=== PATIENT | female | born 1950 | race Caucasian/White ===

== ENCOUNTER 2020-07-29 08:31 | Outpatient (CLI) | payer MEDICARE, SELFPAY ==
--- NOTE | ~2020-07-29 | DEXA_ITS ---
BMD(1) Young-Adult(2) Age-Matched(3) Region (g/cm2) T-score Z-score WHO Classification L1 1.084 -0.5 0.4 Normal L2 1.099 -0.9 -0.1 Normal L3 1.228 0.1 0.9 Normal L4 1.357 1.1 1.9 Normal L1-L4 1.213 0.2 1.0 Normal Trend: L1-L4 Change vs Change vs Measured Age BMD(1) Baseline Previous Date ([age]) (g/cm2) (%) (%) 07/29/2020 [age] 1[age]213 baseline - 1 - Statistically 68% of repeat scans fall within 1SD (+- 0.010 g/cm2 for AP Spine L1-L4) 2 - [place] (Combined [employer]ANES (ages 20-30) / [employer] (ages 20-40)) AP Spine Reference Population (v112) 3 - Matched for Age, Weight (females 25-100 kg), Ethnic 11 - World Health Organization - Definition of Osteoporosis and Osteopenia for Women: Normal = T-score at or above -1.0 SD; Osteopenia = T-score between -1.0 and -2.5 SD; Osteoporosis = T-score at or below -2.5 SD; (WHO definitions only apply when a young healthy Women reference database is used to determine T-scores.) Printed: 07/29/2020 9:37:10 AM (13.60)76:3.00:22.22:27.0 0.00:9.96 0.60x1.05 24.9:%Fat=41.6% 0.00:0.00 0.00:0.00 Filename: [id number] Scan Mode: Thick;OneScan 83.0 uGy [employer] [id number] BMD(1) Young-Adult(2,7) Age-Matched(3) Region (g/cm2) T-score Z-score WHO Classification Neck Left 0.889 -1.1 0.1 Osteopenia Right 0.906 -1.0 0.3 Normal Mean 0.898 -1.0 0.2 Normal Difference 0.016 0.1 0.1 - Total Left 1.049 0.3 1.3 Normal Right 1.026 0.1 1.1 Normal Mean 1.038 0.2 1.2 Normal Difference 0.023 0.2 0.2 - Hip [place] Length Comparison (mm) (Right = 110.5 mm) (Mean = 103.8 mm) (Left = 105.6 mm) Trend: Total Mean Change vs Change vs Measured Age BMD(1) Baseline Previous Date (years) (g/cm2) (%) (%) 07/29/2020 69.8 1[age]038 baseline - 1 - Statistically 68% of repeat scans fall within 1SD (+- 0.010 g/cm2 for Dual[employer]em[employer] Total) 2 - [place] (Combined [employer]ANES (ages 20-30) / [employer] (ages 20-40)) Femur Reference Population (v112) 3 - Matched for Age, Weight (females 25-100 kg), Ethnic 7 - [employer] Total T-score difference is 0.2. Asymmetry is None. 11 - World Health Organization - Definition of Osteoporosis and Osteopenia for Women: Normal = T-score at or above -1.0 SD; Osteopenia = T-score between -1.0 and -2.5 SD; Osteoporosis = T-score at or below -2.5 SD; (WHO definitions only apply when a young healthy Women reference database is used to determine T-scores.) Printed: 07/29/2020 9:37:11 AM (13.60); Filename: [id number]; Right Femur; 20.8:%Fat=34.3%; Neck Angle (deg)= 55; Scan Mode: Standard 37.0 uGy; Left Femur; 21.6:%Fat=36.5%; Neck Angle (deg)= 55; Scan Mode: Standard 37.0 uGy [employer] [id number] Dear Codey Kohler, Your patient Amy Bolanos completed a BMD test on 07/29/2020 using the [employer] DXA System (analysis version: 13.60) manufactured by [employer]. The following summarizes the results of our evaluation. PATIENT BIOGRAPHICAL: Name: Amy Bolanos Date: 1950 Height: 62.0 in. Gender: Female Exam Date: 07/29/2020 Weight: 200.0 lbs. Indications: , Height Loss Fractures: Tr
== END 2020-07-29 08:32 | disposition home or self-care (01) ==
LOC: CHSIMG 08:36
PROVIDERS: PCP Family Medicine; Visit Provider Family Medicine
DX: Z78.0 Asymptomatic menopausal state (principal)
CPT/HCPCS: 77080

== ENCOUNTER 2021-08-22 13:02 | Outpatient (CLI) | payer MEDICARE, SELFPAY ==
--- NOTE | 2021-08-22 13:15 | PC.NURSE ---
Presents for infusion for covid, consent signed,
[2021-08-22 13:25] VITALS: BP 127/68; PULSE 79; RESP 18; TEMP 36.3; O2SAT 93
[2021-08-22] MEDS: FAMOTIDINE 20 MG TABLET PO (13:30)
[2021-08-22] MEDS: diphenhydrAMINE HCl CAP 25 MG CAPSULE PO (13:30)
[2021-08-22] MEDS: ACETAMINOPHEN 325 MG TABLET 650 MG PO (13:30)
--- NOTE | 2021-08-22 13:32 | PC.NURSE ---
pre meds given
[2021-08-22 14:35] VITALS: BP 129/68; PULSE 70; RESP 18; TEMP 36.4; O2SAT 95
--- NOTE | 2021-08-22 14:36 | PC.NURSE ---
Infusion complete, tolerated well,
--- NOTE | 2021-08-22 15:54 | PC.NURSE ---
Patient alert and oriented. Pleasant and talkative. Tolerated IV infusion well. Amb to car with no difficulty.
== END 2021-08-22 13:03 | disposition home or self-care (01) ==
LOC: CHSTREATRM 13:04
PROVIDERS: PCP Family Medicine; Visit Provider Family Medicine
DX: Z23 Encounter for immunization (principal); U07.1 COVID-19
CPT/HCPCS: 96365; A9270; M0245